=== PATIENT | female | born 1935 | race Caucasian/White ===

== ENCOUNTER 2017-10-21 20:26 | Inpatient (IN) | payer BC ==
[~2017-10-21] VITALS: Ht 147.3 cm; Wt 54.4 kg
[2017-10-21 20:34] VITALS: BP_SYST 109
[2017-10-21] MEDS ORDERED: NACL 0.9% 1,000 ML IV ONE (21:30)
[2017-10-21] MEDS ORDERED: NS 500 ML IV ONE (21:30)
[2017-10-21 22:32] LABS: ANION GAP 5 (5-15); CALCIUM 9.8 mg/dL (8.4-11.0); CHLORIDE 105 mmol/L (98-107); CREATININE 1.23 mg/dL (0.55-1.30); GLUCOSE 215 mg/dL (70-99); POTASSIUM 4.8 mmol/L (3.5-5.1); SODIUM SERUM 135 mmol/L (136-145); UREA NITROGEN, BLOOD 39 mg/dL (8-21)
[2017-10-21 22:37] LABS: ALANINE AMINOTRANSFERASE 28 U/L (12-78); ALBUMIN 2.9 g/dL (3.4-4.8); ASPARTATE AMINOTRANSFERASE 19 U/L (10-37); TOTAL BILIRUBIN 0.2 mg/dL (0.0-1.0)
[2017-10-21 22:39] LABS: BASOPHILS % (AUTO) 0.6 % (0.0-2.0); EOSINOPHILS # (AUTO) 0.4 K/uL (0.0-0.4); EOSINOPHILS % (AUTO) 7.5 % (0.0-4.0); HEMATOCRIT 29.5 % (36-48); HEMOGLOBIN 9.9 g/dL (12.0-16.0); LYMPHOCYTES # (AUTO) 1.3 K/uL (1.0-5.5); LYMPHOCYTES % (AUTO) 24.4 % (20.5-51.5); MEAN CORPUSCULAR HEMOGLOBIN 30 pg (27-31); MEAN CORPUSCULAR HGB CONC 34 % (32-36); MEAN CORPUSCULAR VOLUME 89 fL (79.0-98.0); MONOCYTES # (AUTO) 0.5 K/uL (0.0-1.0); MONOCYTES % (AUTO) 9.8 % (1.7-9.3); NEUTROPHILS # (AUTO) 2.9 K/uL (1.8-7.7); NEUTROPHILS % (AUTO) 57.7 % (40.0-70.0); PLATELET COUNT (AUTO) 222 K/uL (130-430); RED BLOOD CELL COUNT(AUTO) 3.32 MIL/uL (4.2-6.2); RED CELL DISTRIBUTION WIDTH 13.1 % (9.0-15.0); WHITE BLOOD COUNT (AUTO) 5.1 K/uL (4.8-10.8)
[2017-10-21 22:41] LABS: PROTHROMBIN TIME 9.9 SECS (9.5-12.5)
[2017-10-21 23:09] LABS: BILIRUBIN,URINE NEGATIVE (NEGATIVE); BLOOD, URINE NEGATIVE (NEGATIVE); CLARITY/URINE CLEAR (CLEAR); COLOR,URINE YELLOW (YELLOW); GLUCOSE,URINE NEGATIVE (NEGATIVE); KETONES,URINE TRACE (NEGATIVE); LEUKOCYTE ESTERASE ,URINE TRACE (NEGATIVE); NITRITE, URINE NEGATIVE (NEGATIVE); PH,URINE 5.5 (5.0-8.0); PROTEIN URINE NEGATIVE (NEGATIVE); UROBILINOGEN,URINE 0.2 (0.2-1.0)
[2017-10-21 23:23] LABS: BACTERIA,URINE MODERATE /HPF (None Seen); MUCUS,URINE 2+ /LPF (None Seen); RBC,URINE 0-3 /HPF (0-3)
[2017-10-21] MEDS ORDERED: LEVOFLOXACIN 500 MG/D5W 100 ML IV ONE ×2 (23:30)
[2017-10-21] MEDS ORDERED: NACL 0.9% 1,000 ML IV SCH (23:35)
[2017-10-21] MEDS ORDERED: SERT25TA PO (23:38)
[2017-10-21] MEDS ORDERED: PRO40 PO (23:38)
[2017-10-21] MEDS ORDERED: NEU100 PO (23:38)
[2017-10-21] MEDS ORDERED: POTA8TAB4 PO (23:38)
[2017-10-21] MEDS ORDERED: FURO-149 PO (23:38)
[2017-10-21] MEDS ORDERED: ASPI-1063 PO (23:38)
[2017-10-21] MEDS ORDERED: CYAN100070 PO (23:38)
[2017-10-21] MEDS ORDERED: GLIP-195 PO (23:38)
[2017-10-21] MEDS ORDERED: PRAV20TA PO (23:38)
[2017-10-21] MEDS ORDERED: REM15 PO (23:38)
[2017-10-21] MEDS ORDERED: MAGN400T10 PO (23:38)
[2017-10-21] MEDS ORDERED: METH10TA80 PO (23:38)
[2017-10-21] MEDS ORDERED: VALS160T2 PO (23:38)
[2017-10-21] MEDS ORDERED: MEMA10TA12 PO (23:38)
[2017-10-21] MEDS ORDERED: ONDANSETRON HCL 4 MG/2 ML VIAL IVP PRN (23:45)
[2017-10-21] MEDS ORDERED: MORPHINE 2 MG/ML INJ. SYRINGE IVP PRN (23:45)
[2017-10-21] MEDS ORDERED: ACETAMINOPHEN 325 MG TABLET PO PRN (23:45)
[2017-10-22 00:17] LABS: FREE T4 (FREE THYROXINE) 0.6 ng/dL (0.6-1.6); PHOSPHORUS 3.5 mg/dL (2.7-4.5); THYROID STIMULATING HORMONE 1.59 uIu/mL (0.34-4.82)
[2017-10-22 00:45] VITALS: BP_SYST 137
[2017-10-22 07:00] LABS: CHOLESTEROL 126 mg/dL (<200); HDL CHOLESTEROL 47 mg/dL (>55); LDL CHOLESTEROL 65 mg/dL (<100); TRIGLYCERIDES 43 mg/dL (30-150)
[2017-10-22] MEDS ORDERED: ZOLPIDEM TARTRATE 5 MG TABLET PO PRN (07:30)
[2017-10-22] MEDS ORDERED: BISACODYL 10 MG/SUPPOSITORY RC PRN (07:30)
[2017-10-22] MEDS ORDERED: SIMETHICONE 80 MG TAB.CHEW PO PRN (07:30)
[2017-10-22] MEDS ORDERED: HYDROcodone/ACETAMIN 10-325 MG TAB PO PRN (07:30)
[2017-10-22] MEDS ORDERED: POTASSIUM CHLORIDE 20 MEQ TAB.PRT.SR PO PRN (07:30)
[2017-10-22 08:03] VITALS: BP_SYST 151
[2017-10-22] MEDS: LORazepam 2 MG/ML VIAL IVP PRN ×2 (08:11→14:08)
[2017-10-22] MEDS ORDERED: FUROSEMIDE 40 MG/4 ML VIAL IVP ONE (08:15)
[2017-10-22] MEDS ORDERED: DOCUSATE SODIUM 100 MG CAPSULE PO SCH (09:00)
[2017-10-22] MEDS ORDERED: FUROSEMIDE 40 MG/4 ML VIAL IVP SCH (09:00)
[2017-10-22 11:52] VITALS: BP_SYST 142
[2017-10-22] MEDS ORDERED: NITR-85 PO (14:28)
[2017-10-22 14:45] VITALS: BP_SYST 116
[2017-10-22] MEDS ORDERED: MIRTAZAPINE 15 MG TABLET PO SCH (21:00)
[2017-10-22] MEDS ORDERED: MAGNESIUM OXIDE 400 MG TABLET PO SCH (21:00)
[2017-10-22] MEDS ORDERED: MEMANTINE HCL 5 MG TABLET PO SCH (21:00)
[2017-10-23 08:16] LABS: T4 (THYROXINE) 4.5 ug/dL (4.5-12.0)
[2017-10-23] MEDS ORDERED: POTASSIUM CHLORIDE 8 MEQ TABLET.SA PO SCH (09:00)
[2017-10-23] MEDS ORDERED: SIMVASTATIN 10 MG TABLET PO SCH (09:00)
[2017-10-23] MEDS ORDERED: METHIMAZOLE 5 MG TABLET PO SCH (09:00)
[2017-10-23] MEDS ORDERED: VALSARTAN 160 MG TABLET (DIOVAN) PO SCH (09:00)
[2017-10-23] MEDS ORDERED: SERTRALINE HCL 50 MG TABLET PO SCH (09:00)
[2017-10-23] MEDS ORDERED: ASPIRIN 81 MG TABLET(ECOTRIN) PO SCH (09:00)
[2017-10-23] MEDS ORDERED: PANTOPRAZOLE SODIUM 40 MG TAB PO SCH (09:00)
[2017-10-23] MEDS ORDERED: GABAPENTIN 100 MG CAPSULE PO SCH (09:00)
[2017-10-23] MEDS ORDERED: glipiZIDE XL 5 MG TAB ( GLUCOTROL XL) PO SCH (09:00)
[2017-10-23] MEDS ORDERED: FUROSEMIDE 40 MG TABLET PO SCH (09:00)
== END 2017-10-22 15:15 | disposition home or self-care (01) | DRG 56 ==
LOC: SED 20:26 → STU 23:25
PROVIDERS: ADMIT Family Medicine; ATTEND Family Medicine
DX: G30.9 Alzheimer's disease, unspecified (principal); G93.41 Metabolic encephalopathy; E11.9 Type 2 diabetes mellitus without complications; E86.0 Dehydration; N39.0 Urinary tract infection, site not specified; F02.80 Dementia in other diseases classified elsewhere, unspecified severity, without behavioral disturbance, psychotic disturbance, mood disturbance, and anxiety; F32.9 Major depressive disorder, single episode, unspecified; E78.5 Hyperlipidemia, unspecified; R26.81 Unsteadiness on feet; F41.9 Anxiety disorder, unspecified; Z66 Do not resuscitate; I10 Essential (primary) hypertension; Z79.899 Other long term (current) drug therapy; Z90.49 Acquired absence of other specified parts of digestive tract
CPT/HCPCS: 36415; 71045; 80053; 80061; 81000-TC; 82150-TC; 83036; 83605; 83690-TC; 83735-TC; 83880; 84100-TC; 84436; 84439; 84443-TC; 84479; 84484; 85025; 85610-TC; 85730-TC; 87040-TC; 87086; 93005; 93306; 96361; 96365; 97110-GP; 99285; J1940; J1956; J2060; J7030

== ENCOUNTER 2018-01-29 12:34 | Emergency (ER) | payer BC, MEDICAID ==
[~2018-01-29] VITALS: Ht 152.4 cm; Wt 60.8 kg
[~2018-01-29 12:34] MED LIST: ASPI-1063 PO; CYAN100070 PO; DULO20CA PO; FURO-149 PO; GLIP-195 PO; LUBI24CA5 PO; MAGN400T10 PO; MEMA10TA12 PO; METH10TA80 PO; OXYC10TA71 PO; POTA8TAB4 PO; PRAV20TA PO; PRO40 PO; REM15 PO; SERT25TA PO; TRAM50TA92 PO; VALS160T2 PO; VITD2000 PO
[2018-01-29 12:40] VITALS: BP_SYST 133
[2018-01-29 13:25] LABS: HEMATOCRIT 32.5 % (36-48); HEMOGLOBIN 10.3 g/dL (12.0-16.0); MEAN CORPUSCULAR HEMOGLOBIN 27 pg (27-31); MEAN CORPUSCULAR HGB CONC 32 % (32-36); MEAN CORPUSCULAR VOLUME 85 fL (79.0-98.0); PLATELET COUNT (AUTO) 232 K/uL (130-430); RED BLOOD CELL COUNT(AUTO) 3.82 MIL/uL (4.2-6.2); RED CELL DISTRIBUTION WIDTH 13.6 % (9.0-15.0)
[2018-01-29 13:40] LABS: PROTHROMBIN TIME 10.4 SECS (9.5-12.5)
[2018-01-29 13:53] LABS: LYMPHOCYTES % (MANUAL) 18 % (20-46)
[2018-01-29 13:54] LABS: ANION GAP 11 (5-15); BASOPHILS % (MANUAL) 0 % (0-2); CALCIUM 10.4 mg/dL (8.4-11.0); CHLORIDE 102 mmol/L (98-107); CREATININE 1.91 mg/dL (0.55-1.30); EOSINOPHILS % (MANUAL) 6 % (0-7); GLUCOSE 137 mg/dL (70-99); MONOCYTES % (MANUAL) 2 % (0-11); POTASSIUM 4.6 mmol/L (3.5-5.1); SODIUM SERUM 134 mmol/L (136-145); UREA NITROGEN, BLOOD 25 mg/dL (8-21)
[2018-01-29 13:58] LABS: ALANINE AMINOTRANSFERASE 19 U/L (12-78); ALBUMIN 3.4 g/dL (3.4-4.8); AMYLASE 30 U/L (0-100); ASPARTATE AMINOTRANSFERASE 19 U/L (10-37); LIPASE 105 U/L (73-393); TOTAL BILIRUBIN 0.2 mg/dL (0.0-1.0)
[2018-01-29 13:58] LABS: BILIRUBIN,URINE 1+ (NEGATIVE); BLOOD, URINE NEGATIVE (NEGATIVE); CLARITY/URINE CLEAR (CLEAR); COLOR,URINE YELLOW (YELLOW); GLUCOSE,URINE NEGATIVE (NEGATIVE); KETONES,URINE NEGATIVE (NEGATIVE); LEUKOCYTE ESTERASE ,URINE NEGATIVE (NEGATIVE); NITRITE, URINE NEGATIVE (NEGATIVE); PH,URINE 5.5 (5.0-8.0); PROTEIN URINE NEGATIVE (NEGATIVE); UROBILINOGEN,URINE 0.2 (0.2-1.0)
[2018-01-29] MEDS ORDERED: NACL 0.9% 1,000 ML IV ONE (15:00)
[2018-01-29 16:15] VITALS: BP_SYST 135
== END 2018-01-29 16:15 | disposition home or self-care (01) ==
LOC: SED 12:34
DX: R10.33 Periumbilical pain (principal); J02.9 Acute pharyngitis, unspecified; R11.2 Nausea with vomiting, unspecified; E11.9 Type 2 diabetes mellitus without complications; I10 Essential (primary) hypertension; G30.9 Alzheimer's disease, unspecified; F02.80 Dementia in other diseases classified elsewhere, unspecified severity, without behavioral disturbance, psychotic disturbance, mood disturbance, and anxiety; E78.00 Pure hypercholesterolemia, unspecified; F41.9 Anxiety disorder, unspecified; Z86.79 Personal history of other diseases of the circulatory system; Z79.899 Other long term (current) drug therapy; Z98.51 Tubal ligation status; Z90.49 Acquired absence of other specified parts of digestive tract
CPT/HCPCS: 36415; 71045; 80053; 81003; 82150-TC; 83605; 83690-TC; 85007; 85027; 85610-TC; 85730-TC; 93005; 96360; 99285; J7030

== ENCOUNTER 2019-05-02 14:02 | Inpatient (IN) | payer BC, MEDICAID ==
[~2019-05-02] VITALS: Ht 147.3 cm; Wt 55.8 kg
[2019-05-02 14:02] VITALS: BP_SYST 130
[~2019-05-02 14:02] MED LIST changes: -ASPI-1063 PO; +ASPI-1457 PO; -FURO-149 PO; +FURO-150 PO; -GLIP-195 PO; +GLIP5TAB26 PO; -LUBI24CA5 PO; +MELA3TAB64 PO; +MEMA10TA PO; -MEMA10TA12 PO; -METH10TA80 PO; +METH5TAB70 PO; +MIRT45TA83 PO; -OXYC10TA71 PO; +PRED1TAB PO; -REM15 PO; -SERT25TA PO; -TRAM50TA92 PO; -VALS160T2 PO
--- NOTE | 2019-05-02 14:02 | NUR ---
BROUGHT BACK TO ROOM #4 VIA WHEELCHAIR AND TRIAGED. REPORT GIVEN TO CRISTAL
--- NOTE | 2019-05-02 14:25 | NUR ---
ER Trent Garcia at bedside examining patient.
--- NOTE | 2019-05-02 14:30 | NUR ---
Pt bib family c/o constipation.Pt h/o chronic constipation,dementia and DM.
--- NOTE | 2019-05-02 14:44 | NUR ---
Patient transported to radiology via gurney, accompanied by rad staff.
[2019-05-02 14:45] LABS: BASOPHILS % (AUTO) 0.9 % (0.0-2.0); EOSINOPHILS # (AUTO) 0.2 K/uL (0.0-0.4); EOSINOPHILS % (AUTO) 3.7 % (0.0-4.0); HEMATOCRIT 31.8 % (36-48); HEMOGLOBIN 10.6 g/dL (12.0-16.0); LYMPHOCYTES # (AUTO) 1.5 K/uL (1.0-5.5); LYMPHOCYTES % (AUTO) 29.6 % (20.5-51.5); MEAN CORPUSCULAR HEMOGLOBIN 29 pg (27-31); MEAN CORPUSCULAR HGB CONC 33 % (32-36); MEAN CORPUSCULAR VOLUME 87 fL (79.0-98.0); MONOCYTES # (AUTO) 0.3 K/uL (0.0-1.0); MONOCYTES % (AUTO) 6.7 % (1.7-9.3); NEUTROPHILS # (AUTO) 2.9 K/uL (1.8-7.7); NEUTROPHILS % (AUTO) 59.1 % (40.0-70.0); PLATELET COUNT (AUTO) 152 K/uL (130-430); RED BLOOD CELL COUNT(AUTO) 3.65 MIL/uL (4.2-6.2); RED CELL DISTRIBUTION WIDTH 15.3 % (9.0-15.0)
--- NOTE | 2019-05-02 14:50 | NUR ---
Returned from radiology, back to [facility].
[2019-05-02 15:01] LABS: ANION GAP 9 (5-15); CALCIUM 9.9 mg/dL (8.4-11.0); CHLORIDE 106 mmol/L (98-107); CREATININE 1.03 mg/dL (0.55-1.30); GLUCOSE 177 mg/dL (70-99); SODIUM SERUM 142 mmol/L (136-145); UREA NITROGEN, BLOOD 15 mg/dL (8-21)
[2019-05-02 15:06] LABS: ALANINE AMINOTRANSFERASE 11 U/L (12-78); ALBUMIN 3.3 g/dL (3.4-4.8); AMYLASE 32 U/L (0-100); ASPARTATE AMINOTRANSFERASE 14 U/L (10-37); LIPASE 102 U/L (73-393); TOTAL BILIRUBIN 0.3 mg/dL (0.0-1.0)
--- NOTE | 2019-05-02 15:57 | NUR ---
ER Trent Garcia at bedside explaining patient's family regarding admission .
[2019-05-02 16:08] LABS: INR 1.1 (0.8-1.2); PROTHROMBIN TIME 11.2 SECS (9.5-12.5)
[2019-05-02] MEDS ORDERED: GABA-529 PO (16:14)
[2019-05-02] MEDS ORDERED: ACETAMINOPHEN 325 MG TABLET PO PRN (17:00)
[2019-05-02] MEDS ORDERED: PANTOPRAZOLE SODIUM 40 MG/VIAL (PROTONIX) IVP ONE (17:30)
--- NOTE | 2019-05-02 17:40 | NUR ---
Patient will be admitted to care of Farzana SANDS. Admitted to MED/SURG unit. Will go to room 114. Belongings list completed. Summary report printed. Report will be given at bedside.
--- NOTE | 2019-05-02 17:45 | NUR ---
admission notes received an 83 y/o female confused, with dementia, accompanied by family member, made aware that Jose will be his nurse.
--- NOTE | 2019-05-02 17:52 | NUR ---
CONSULTATION PAGED/CALLED Reason for Consultation: FECAL IMPACTION Person Who was Notified: SPOKE WITH ALEENA FROM [employer] . Consulting Physician: Regional Transportation Manager Specialty: GI Ordering Physician:
[2019-05-02] MEDS ORDERED: MINERAL OIL 133 ML ENEMA RC ONE (18:00)
[2019-05-02] MEDS ORDERED: GOLYTELY / COLYTE SOLUTION 4 LITERS PO SCH (18:00)
[2019-05-02 18:01] VITALS: BP_SYST 121
[2019-05-02] MEDS: NACL 0.9% 1,000 ML IV SCH ×2 (18:20→18:26)
--- NOTE | 2019-05-02 18:30 | NUR ---
Paged Dr. Boston s/w [place].
--- NOTE | 2019-05-02 18:32 | NUR ---
RN NOTES, RECEIVED PT FROM E.R. PT IS ALERT AND AWAKE, PT CONFUSED. PT'S SONS AT BEDSIDE. PT SON . DAYSI HAZEL, STATED THAT PT BECOMES VERY COMBATANT AND AGITATED , SO HE WANTS ANXIOLYTICS BE ORDERED FIRST BEFORE WE GIVE OR DO ANY PROCEDURE WITH PATIENT. STATED THAT HE DOES NOT WANT SAME THING HAPPENING WHEN PATIENT BECOMES VERY AGITATED AND IT IS ONLY WHEN WE CALL THE MD FOR MEDICATIONS. TOLD DAYSI THAT WE WILL CALL THE DOCTOR TO GET THIS MEDICATIONS.
--- NOTE | 2019-05-02 19:00 | NUR ---
CLOSING NOTES, PT HAS BEEN STABLE SINCE ARRIVAL TO FLOOR. FAMILY AT BEDSIDE. PAGED DR SOTO EARLIER TO GET ORDER FOR MED RECON AND ANXIOLYTIC MEDS PER FAMILY BEFORE WE DO ANYTHING TO PT, LIKE CHECK WOUNDS AND FLEETS ENEMA. WILL ENDORSE TO NIGHT RN.
--- NOTE | 2019-05-02 19:15 | NUR ---
OPENING NOTE RECEIVED CARE OF PT. PT IS RESTING IN BED, AAOX1 (PERSON), WITH FAMILY AT BEDSIDE. PT IS CALM AT THIS TIME, NO S/S OF ACUTE DISTRESS, BREATHING IS UNLABORED TO ROOM AIR. IVF INFUSING AT ORDERED RATE, NO S/S OF INFILTRATION AT IV SITE. PT AND FAMILY ORIENTED TO USE OF CALL LIGHT AND ENCOURAGED TO CALL FOR ASSISTANCE. SAFETY PRECAUTIONS ARE IN PLACE: BED IS LOCKED IN LOWEST POSITION, SIDE RAILS UP X3, CALL LIGHT WITH PT, BED ALARM ON. WILL MONITOR.
--- NOTE | 2019-05-02 19:44 | NUR ---
Second call for Dr. Boston s/w Alee.
--- NOTE | 2019-05-02 19:55 | NUR ---
SPOKE TO DR. SOTO AND INFORMED MD THAT PT'S FAMILY IS REQUESTING ANXIOLYTIC FOR PT BEFORE ANY PROCEDURES ARE DONE. MD ORDERED ATIVAN PRN. ALSO ORDERED TO CONTINUE ALL HOME MEDICATIONS. WILL CARRY OUT.
[2019-05-02 20:00] VITALS: BP_SYST 132
[2019-05-02] MEDS ORDERED: CHOLECALCIFEROL (VITAMIN D3) 2,000 UNIT TABLET PO SCH (20:00)
[2019-05-02] MEDS: MELATONIN 3 MG TABLET PO SCH (20:00)
[2019-05-02] MEDS ORDERED: PANTOPRAZOLE SODIUM 40 MG TAB PO SCH (20:00)
[2019-05-02] MEDS ORDERED: ASPIRIN 81 MG TABLET(ECOTRIN) PO SCH (20:00)
[2019-05-02] MEDS ORDERED: CYANOCOBALAMIN 1000 mCg TABLET PO SCH (20:00)
--- NOTE | 2019-05-02 20:15 | NUR ---
REFUSING MIDNIGHT VITALS PT'S SON REQUESTING THAT PT NOT BE DISTURBED WHILE SHE IS SLEEPING. PT'S SON EDUCATED REGARDING NEED TO MONITOR VITAL SIGNS, PT'S SON CONTINUED TO REFUSE AND STATED THAT HE WILL CALL THE NURSE IF HIS MOM NEEDS ANYTHING. WILL MONITOR.
[2019-05-02] MEDS: LORazepam 2 MG/ML VIAL IVP PRN (20:42)
--- NOTE | 2019-05-02 20:42 | NUR ---
ANXIETY/ATIVAN PT RESTLESS AND FAMILY REQUESTING ATIVAN. ATIVAN 0.5 MG IVP ADMINISTERED ORDERED. NO S/S OF DISTRESS, PT TOLERATED WELL. SAFETY MAINTAINED. WILL MONITOR.
[2019-05-02] MEDS: MEMANTINE HCL 5 MG TABLET PO SCH (21:00)
[2019-05-02] MEDS ORDERED: ATORVASTATIN 10 MG TABLET PO SCH (21:00)
[2019-05-02] MEDS ORDERED: MIRTAZAPINE 15 MG TABLET PO SCH (21:00)
[2019-05-02] MEDS ORDERED: PRAVASTATIN SODIUM 20 MG TABLET (PRAVACHOL) PO SCH (21:00)
--- NOTE | 2019-05-02 21:31 | NUR ---
WOUND CARE/ENEMA PT RESTING IN BED WITH EYES CLOSED. WOUND CARE DONE AND WOUND PHOTO TAKEN. FLEET MINERAL OIL ENEMA GIVEN ORDERED. ENEMA EXPLAINED TO PT'S FAMILY, WHO VERBALIZED UNDERSTANDING. PT TOLERATED ENEMA WELL AND SHOWED NO SIGN OF DISTRESS OR DISCOMFORT. FAMILY REMAINED AT BEDSIDE DURING PROCEDURE. PT STILL RESTING QUIETLY IN BED. PT APPEARS TO BE COMFORTABLE. SAFETY AND FALL PRECAUTIONS ARE IN PLACE. WILL MONITOR.
--- NOTE | 2019-05-02 23:35 | NUR ---
SLEEPING PT IS RESTING IN BED WITH EYES CLOSED. NO S/S OF ACUTE DISTRESS. FAMILY IS AT BEDSIDE. WILL MONITOR.
--- NOTE | 2019-05-03 01:40 | NUR ---
RN NOTE: PT RESTING IN BED. EYES ARE CLOSED. NO SIGNS OF DISTRESS. FAMILY REMAINS AT BEDSIDE. SAFETY PRECAUTIONS ARE IN PLACE. WILL MONITOR.
--- NOTE | 2019-05-03 03:13 | NUR ---
RESTING PT IS RESTING IN BED. NO S/S OF ACUTE DISTRESS. IVF INFUSING ORDERED. PT'S SON IS AT BEDSIDE. SAFETY PRECAUTIONS ARE IN PLACE. WILL MONITOR.
[2019-05-03] MEDS: NACL 0.9% 1,000 ML IV SCH (04:13)
--- NOTE | 2019-05-03 04:13 | NUR ---
IVF BAG CHANGE NEW IVF BAG HUNG. PT IS AWAKE AND CONFUSED IN BED. NO S/S OF ACUTE DISTRESS. PT'S SON REMAINS AT BEDSIDE. SAFETY PRECAUTIONS REMAIN IN PLACE. WILL MONITOR.
[2019-05-03 05:33] LABS: BASOPHILS % (AUTO) 0.6 % (0.0-2.0); EOSINOPHILS # (AUTO) 0.3 K/uL (0.0-0.4); HEMATOCRIT 30.7 % (36-48); HEMOGLOBIN 10.3 g/dL (12.0-16.0); LYMPHOCYTES # (AUTO) 1.6 K/uL (1.0-5.5); LYMPHOCYTES % (AUTO) 36.4 % (20.5-51.5); MEAN CORPUSCULAR HEMOGLOBIN 29 pg (27-31); MEAN CORPUSCULAR HGB CONC 34 % (32-36); MEAN CORPUSCULAR VOLUME 86 fL (79.0-98.0); MONOCYTES # (AUTO) 0.3 K/uL (0.0-1.0); MONOCYTES % (AUTO) 7.6 % (1.7-9.3); NEUTROPHILS # (AUTO) 2.1 K/uL (1.8-7.7); NEUTROPHILS % (AUTO) 49.4 % (40.0-70.0); PLATELET COUNT (AUTO) 138 K/uL (130-430); RED BLOOD CELL COUNT(AUTO) 3.55 MIL/uL (4.2-6.2); RED CELL DISTRIBUTION WIDTH 15.2 % (9.0-15.0); WHITE BLOOD COUNT (AUTO) 4.3 K/uL (4.8-10.8)
[2019-05-03 05:58] LABS: ALANINE AMINOTRANSFERASE 7 U/L (12-78); ALBUMIN 2.8 g/dL (3.4-4.8); ANION GAP 10 (5-15); ASPARTATE AMINOTRANSFERASE 14 U/L (10-37); CALCIUM 9.1 mg/dL (8.4-11.0); CHLORIDE 110 mmol/L (98-107); CREATININE 0.95 mg/dL (0.55-1.30); GLUCOSE 136 mg/dL (70-99); SODIUM SERUM 146 mmol/L (136-145); THYROID STIMULATING HORMONE 1.43 uIu/mL (0.36-3.74); TOTAL BILIRUBIN 0.4 mg/dL (0.0-1.0); UREA NITROGEN, BLOOD 13 mg/dL (8-21)
[2019-05-03 06:02] LABS: POTASSIUM 2.6 mmol/L (3.5-5.1)
--- NOTE | 2019-05-03 06:28 | NUR ---
CRITICAL POTASSIUM SPOKE TO DR. SOTO TO REPORT POTASSIUM OF 2.6 . NEW ORDER RECEIVED. WILL CARRY OUT.
--- NOTE | 2019-05-03 06:48 | NUR ---
CLOSING NOTE PT RESTING IN BED IN NO ACUTE DISTRESS. PT'S SON IS AT BEDSIDE. IVF ARE INFUSING. WILL ENDORSE TO DAY SHIFT RN TO START KRIDER. NO BOWEL MOVEMENT THROUGHOUT SHIFT. WILL ENDORSE CARE TO DAY SHIFT RN.
--- NOTE | 2019-05-03 07:30 | NUR ---
RN INITIAL NOTES RECEIVED PATIENT IN BED AWAKE AND VERBAL PATIENT ABLE TO ANSWER SIMPLE QUESTION KNOWS HER NAME ,SON DAYSI AT BEDSIDE ,RESP EVEN AND UNLABORED ,NO DISTRESS , SON CONCERN ADDRESSED TO ROUNDING OF GI DR HERNÁNDEZ AND EXPLAINED ALL PLAN OF CARE AND SON FULLY UNDERSTAND ALL EXPLAINATIONS , ALSO EXPLAINED TO HIM RISK OF CONCERNED TO DO COLONOSCOPY AT PATIENT AGE, PATIENT HAD FLEET ENEMA LAST NIGHT STILL NEGATIVE BM,SON STATED IF THE PROBLEM STILL CANT BE SOLVE THEY PREFER MOM TO BE BACK HOME TO [facility],IV K RIDER ORDER WILL START ONCE AVAIL FROM THE PHARMACY.
[2019-05-03 08:00] VITALS: BP_SYST 116
[2019-05-03] MEDS: POTASSIUM CHLORIDE 40 MEQ in NS 250 ML IV SCH ×2 (08:04→12:33)
[2019-05-03] MEDS: MEMANTINE HCL 5 MG TABLET PO SCH (08:55)
[2019-05-03] MEDS ORDERED: PANTOPRAZOLE SODIUM 40 MG/VIAL (PROTONIX) IVP SCH (09:00)
[2019-05-03] MEDS ORDERED: predniSONE 1 MG TABLET PO SCH (09:00)
[2019-05-03] MEDS: MELATONIN 3 MG TABLET PO SCH (09:00)
[2019-05-03] MEDS ORDERED: glipiZIDE XL 5 MG TAB ( GLUCOTROL XL) PO SCH (09:00)
[2019-05-03] MEDS ORDERED: GABAPENTIN 100 MG CAPSULE PO SCH (09:00)
[2019-05-03] MEDS ORDERED: POTASSIUM CHLORIDE 8 MEQ TABLET.SA PO SCH (09:00)
[2019-05-03] MEDS ORDERED: METHIMAZOLE 5 MG TABLET PO SCH (09:00)
[2019-05-03] MEDS ORDERED: FUROSEMIDE 20 MG TABLET PO SCH (09:00)
[2019-05-03] MEDS ORDERED: SODIUM PHOSPHATE,MONO-DIBASIC 133 ML ENEMA RC ONE (09:15)
[2019-05-03] MEDS ORDERED: LINA72CA PO (09:18)
[2019-05-03] MEDS ORDERED: POLY17PO4 PO (09:19)
--- NOTE | 2019-05-03 09:30 | NUR ---
PCP ROUNDS DR Susana SOTO ROUNDS SPOKE AND ANSWERS ALL CONCERN AND QUESTIONS TO THE SON, INFORMED DR SOTO ABOUT DR HERNÁNDEZ ROUNDS AND DISCUSSION WITH SON , ALSO INFORMED MD AWAITING FOR THE CT OF ABDOMEN RESULT ,PATIENT GIVEN MS DIET , PER DR SOTO WILL FINISH UP IV KRIDER ORDERED AND TO DO REPEAT POTASSIUM LEVEL THEN WILL GO FROM THER FOR DC PLANNING , EXPLAINED TO SON AND SON RESPONDED "NO WE DONT NEED TO DO REPEAT K LEVEL " ONCE THIS IV IS DONE , WELL TAKE HER HOME ,AND PATIENT REFUSED ALL MEDS , PER SON THEY WILL GIVE THE MISSED REFUSED MEDS AT HOME,CHARGE NURSE MADE AWARE , PATIENT REFUSED TO EAT ,SON SAID ITS OK WE CANT FORCE HER TO EAT, WILL CONT CARE .
[2019-05-03 11:20] VITALS: BP_SYST 145
--- NOTE | 2019-05-03 11:59 | NUR ---
ROUNDS PATIENT DAUGHTER AT BEDSIDE AND PATIENT IS ALERT SITTING IN THE BEDSIDE CHAIR NO DISTRESS, WILL WAIT FOR THE SON DAYSI WHO IS THE RP IF HE WILL AGREE FOR THE OTHER SET OF FLEET ENEMA ORDERED .
[2019-05-03] MEDS ORDERED: MAGNESIUM OXIDE 400 MG TABLET PO SCH (12:00)
[2019-05-03 12:09] VITALS: BP_SYST 145
--- NOTE | 2019-05-03 12:22 | NUR ---
HOLD DC DR SOTO CALLED AND HELD DISCHARGE AFTER SPEAKING WITH DR HERNÁNDEZ IF PATIENT FAMILY REFUSED TO FOLLOW GI REC TO HAVE PATIENT SIGN AMA CHARGE NURSE MADE AWARE
[2019-05-03] MEDS: LORazepam 2 MG/ML VIAL IVP PRN (14:19)
--- NOTE | 2019-05-03 14:30 | NUR ---
ATIVAN PATIENT IS SURROUNDED BY THE WHOLE FAMILY CONTEMPLATING WITH THE PLAN OF CARE,PAGED DR HERNÁNDEZ AGAIN FOR THE FAMILY TO DISCUSS FURTHER PLAN ,SON DAYSI WILL NEED TO TALK TO DR HERNÁNDEZ TO DECIDE GI RECOMMENDATION, AWAITING FOR THE MD TO CALL BACK.,AT THIS TIME PATIENT GIVEN ATIVAN FOR THE COMFORT
--- NOTE | 2019-05-03 15:15 | NUR ---
DR SOTO/DC ORDER PATIENT SON SPOKE WITH DR SOTO(DR HERNÁNDEZ WAS PAGED 2X BUT NO RETURN CALL ) DISCUSSED PLAN OF DC AND CONT SAME BM MGT AT HOME AND MEDS DR SOTO ORDERED FOR DC HOME GIVE IST DOSE OF GOLYTELY AND SEND THE REST OF THE MEDICINE HOME FOLLOW UP WITH PCP WITHIN 1 WEEK REPEAT LABS AND CONT TO MONITOR PATIENT CONDITION SON IS AWARE IF PATIENT GETS WORST TO BRING PATIENT BACK TO ER ,PATIENT AND FAMILY FULLY UNDERSTOOD . WILL START GOLYTELY ONCE PHARMACY DELIVERS
[2019-05-03 15:26] VITALS: BP_SYST 145
[2019-05-03] MEDS ORDERED: GOLYTELY / COLYTE SOLUTION 4 LITERS PO ONE (15:30)
--- NOTE | 2019-05-03 15:30 | NUR ---
DR HERNÁNDEZ RETURNED CALL GI DR HERNÁNDEZ RETURNED CALL AND INFORMED THAT SON GOT A HOLD WITH DR SOTO AND ORDERED FOR DC AND START GOLYTELY INITIALLY HERE THEN TO BRING THE REST OF THE MEDS HOME , GAVE DR HERNÁNDEZ THE SONS PHONE NO. AND HE WILL CALL HIM FOR FURTHER DISCUSSION BUT DR HERNÁNDEZ IS AWARE THAT PATIENT IS GETTING READY TO BE DC . Addendum: 05/03/19 at 1710 by Erika Cash RN TRELL DAYSI CALLED DAYSI CALLED THE HOSPITAL AND SPOKE WITH HIM THAT DR HERNÁNDEZ SPOKE WITH HIM STATING THAT PATIENT NEEDS TO FOLLOW UP WITH CAT SCAN OF ABDOMEN AND PELVIS AFTER GOLYTELY AND FOLLOW UP WITH PCP WITHIN 1 WEEK.
--- NOTE | 2019-05-03 16:20 | NUR ---
D/C Patient Patient given medication reconciliation form and D/C instructions. Exit Care provided. Patient family verbalized understanding that if patient condition worsen bring patient back to ER. MD discussed with patient the results and treatment provided.advised to see pcp within a week and for follow up labs and ct scan of abdomen and pelvis when seen by the pcp. patient spit initial dose of Golytely and family said they will cont with meds at home . Patient in stable condition and wheeled with staff and family to private vehicle ,no distress, ID band removed. IV catheter removed, intact and dressing applied, no active bleeding. Rx of given. Patient family educated on pain management. All belongings sent with patient.
[2019-05-04] MEDS ORDERED: PANTOPRAZOLE SODIUM 40 MG TAB PO SCH (09:00)
--- NOTE | 2019-05-18 15:14 | NUR ---
DISCHARGE FOLLOW UP PHONE CALL KELVIN/ TRINA VELAZQUEZ PHONED PATIENT, . SPOKE TO SON DAYSI OLIVA (NOK). SON STATED THAT PATIENT IS STILL THE SAME HE IS VERY UPSET WITH THE TREATMENT HIS MOTHER GOT AND COMPLAINS THAT THE CONSTIPATION HAS NOT GONE AWAY. PATIENT ALREADY HAD A FOLLOW UP WITH HER PCP. SHE IS TAKING HER MEDICATIONS INSTRUCTED.
== END 2019-05-03 16:20 | disposition home or self-care (01) | DRG 389 ==
LOC: SED 14:02 → SMU 16:51
PROVIDERS: ADMIT Internal Medicine; ATTEND Internal Medicine
DX: K56.41 Fecal impaction (principal); K59.39 Other megacolon; E11.9 Type 2 diabetes mellitus without complications; E78.5 Hyperlipidemia, unspecified; I10 Essential (primary) hypertension; E78.00 Pure hypercholesterolemia, unspecified; F32.9 Major depressive disorder, single episode, unspecified; F41.9 Anxiety disorder, unspecified; G30.9 Alzheimer's disease, unspecified; F02.80 Dementia in other diseases classified elsewhere, unspecified severity, without behavioral disturbance, psychotic disturbance, mood disturbance, and anxiety; Z79.899 Other long term (current) drug therapy
CPT/HCPCS: 36415; 80053; 82150-TC; 83605; 83690-TC; 84443-TC; 85025; 85610-TC; 85730-TC; 99285; C9113; J2060; J3480; J7030; J7050; J7512